=== PATIENT | female | born 1950 | race Caucasian/White ===

== ENCOUNTER → 2016-11-27 | Outpatient (CLI) | payer MEDICARE, OTHER ==
--- NOTE | 2016-12-08 10:31 | REP ---
PET/CT: History: Diagnosing lung cancer. Abnormal ground-glass nodule right lower lobe. Comparisons: Comparison chest CT study November 20, 2016. TECHNIQUE: 48 minutes following the intravenous injection of a 8.6 mCi dose of F-18 FDG, three-dimensional PET scintigraphy is acquired from the skull base to the proximal thighs. Triplanar noncontrast CT scanning is acquired through the same anatomic range for attenuation correction, and image registration with scan parameters optimized to minimize radiation exposure to the patient. PET scintigraphy and CT datasets were fused and displayed on a workstation with multiplanar and projection display capability. PET/CT Findings: There is no discernible FDA accumulation in the ground-glass opacity seen laterally the right lower lobe. Maximum standard uptake value in this region is 0.98. No other abnormal hypermetabolic uptake is seen in the thorax. No hilar or mediastinal hypermetabolic uptake is seen. In the abdomen and pelvis, normal hepatic, splenic, gastrointestinal and genitourinary MDT accumulation is seen. No abnormal abdominal or pelvic FDG accumulation is seen. Incidental note is made of a hiatal hernia. Head and neck soft tissues are unremarkable. Impression: Negative PET scintigraphy. No discernible FDG accumulation in the right lower lobe ground-glass opacity. Continued radiographic follow-up is recommended. Low grade malignancy is not excluded. Signed by Denton Charles MD 12/08/2016 10:22 A
== END ==
LOC: M PLARAD 13:34
PROVIDERS: ATTEND Internal Medicine
DX: R91.1 Solitary pulmonary nodule (principal)
CPT/HCPCS: 78815; A9552

== ENCOUNTER → 2017-04-16 | Outpatient (REF) | payer MEDICARE, OTHER | LOC: M LAB REF 14:07 | PROVIDERS: ATTEND Internal Medicine | DX: D50.9 Iron deficiency anemia, unspecified (principal) ==

== ENCOUNTER → 2018-01-28 | Outpatient (REF) | payer MEDICARE, OTHER ==
[2018-01-28 13:59] LABS: FERRITIN 17 NG/ML (8-252); IRON (FE) 114 UG/DL (50-170); PERCENT SATURATION 30.8 % (13.2-45.0); TOTAL IRON BINDING CAPACITY 370 UG/DL (250-450)
== END ==
LOC: M LAB REF 12:56
DX: D50.9 Iron deficiency anemia, unspecified (principal)
CPT/HCPCS: 83550

== ENCOUNTER → 2018-11-21 | Outpatient (REF) | payer MEDICARE, OTHER ==
[2018-11-21 13:43] LABS: PERCENT SATURATION 25.3 % (13.2-45.0)
== END ==
LOC: M LAB REF 12:37
PROVIDERS: ATTEND Internal Medicine
DX: D50.9 Iron deficiency anemia, unspecified (principal)

== ENCOUNTER → 2022-03-13 | Outpatient (REF) | payer MEDICARE, OTHER ==
[2022-03-14 12:11] LABS: RNP ANTIBODY 0.2 AI (0.0-0.9); SMITHS ANTIBODY 0.3 AI (0.0-0.9)
== END ==
LOC: M LAB REF 12:15
PROVIDERS: ATTEND Internal Medicine
DX: M32.10 Systemic lupus erythematosus, organ or system involvement unspecified (principal); F51.11 Primary hypersomnia

== ENCOUNTER → 2022-11-16 | Outpatient (REF) | payer MEDICARE | LOC: M LAB REF 11:59 | PROVIDERS: ATTEND Internal Medicine | DX: N32.89 Other specified disorders of bladder (principal); Z79.899 Other long term (current) drug therapy ==

== ENCOUNTER → 2023-03-12 | Outpatient (CLI) | payer MEDICARE, OTHER | LOC: M RAD 10:08 | PROVIDERS: ATTEND Surgery | DX: I87.313 Chronic venous hypertension (idiopathic) with ulcer of bilateral lower extremity (principal) ==

== ENCOUNTER → 2025-03-02 | Outpatient (REF) | payer MEDICARE, OTHER | LOC: M LAB REF 18:01 | PROVIDERS: ATTEND Internal Medicine | DX: M32.8 Other forms of systemic lupus erythematosus (principal) ==